=== PATIENT | male | born 1965 | race Two or more races ===

== ENCOUNTER 2019-09-25 19:39 | Emergency (ER) | payer OTHER, MEDICAID ==
[~2019-09-25] VITALS: Ht 182.9 cm; Wt 111.6 kg
[2019-09-25 19:47] VITALS: Ht 182.9 cm; Wt 111.6 kg
[2019-09-25 21:10] VITALS: BP 121/73
== END 2019-09-25 21:10 | disposition home or self-care (01) ==
LOC: ED 19:39
DX: K74.60 Unspecified cirrhosis of liver (principal); R13.10 Dysphagia, unspecified; R18.8 Other ascites; Z90.49 Acquired absence of other specified parts of digestive tract; Z98.890 Other specified postprocedural states; Z88.5 Allergy status to narcotic agent